=== PATIENT | female | born 1965 | race Caucasian/White ===

== ENCOUNTER 2016-08-16 18:32 | Emergency (ER) | payer OTHER ==
[2016-08-16 18:45] VITALS: BP 138/89
--- NOTE | 2016-08-16 18:48 | UC ---
Throat Pain/Nasal Freddie HPI - HPI Summary HPI Summary: Rapid onset ST yesterday L>R with radiation to L ear. Feels awful today. - History of Current Complaint Stated Complaint: POSSIBLE STREP THROAT Time Seen by Provider: 08/16/16 18:35 Hx Obtained From: Patient Hx Last Menstrual Period: 2009 ?: No Onset/Duration: Lasting Hours Severity: Moderate Cough: None Associated Signs & Symptoms: Negative: Fever, Vomiting, Rash - Allergies/Home Medications Allergies/Adverse Reactions: Allergies Allergy/AdvReac Type Severity Reaction Status Date / Time Hydrocodone Allergy Severe Vomiting Verified 08/16/16 18:45 Penicillins Allergy Severe Unknown Verified 08/16/16 18:45 Reaction Details PMH/Surg Hx/FS Hx/Imm Hx Endocrine History Of: Reports: Thyroid Disease, Hypothyroidism Denies: Diabetes Cardiovascular History Of: Denies: Cardiac Disorders, Hypertension Respiratory History Of: Denies: COPD, Asthma GI/ History Of: Denies: Ulcer - Surgical History Surgical History: Yes Surgery Procedure, Year, and Place: Hysterectomy, cholecystectomy, BREAST LUMPECTOMY (L), BLADDER SURGERY - Family History Known Family History: Positive: Blood Disorder - thallasemia minor Family History: NON CONTRIBUTORY - Social History Occupation: Employed Full-time Lives: Alone Alcohol Use: None Substance Use Type: None Smoking Status (MU): Former Smoker Review of Systems Constitutional: Negative Skin: Negative Eyes: Negative ENT: Sore Throat Respiratory: Negative Cardiovascular: Negative Gastrointestinal: Negative Genitourinary: Negative Motor: Negative Neurovascular: Negative Musculoskeletal: Negative Neurological: Negative Psychological: Negative All Other Systems Reviewed And Are Negative: Yes Physical Exam Triage Information Reviewed: Yes Appearance: Well-Appearing, Pain Distress - with swallowing Vital Signs: Initial Vital Signs Temp 97.6 F 08/16/16 18:42 Pulse 107 08/16/16 18:42 Resp 18 08/16/16 18:42 BP 138/89 08/16/16 18:42 Pulse Ox 100 08/16/16 18:42 Vital Signs Reviewed: Yes Eye Exam: Normal Eyes: Positive: Conjunctiva Clear ENT: Positive: Pharynx normal, TMs normal. Negative: Nasal congestion, Nasal drainage, Tonsillar swelling, Tonsillar exudate - s/p tonsillectomy Dental Exam: Normal Neck: Positive: Tenderness @ - L tonsillar node, Enlarged Nodes @ - L tonsillar node Respiratory Exam: Normal Respiratory: Positive: Chest non-tender, Lungs clear, Normal breath sounds, No respiratory distress, No accessory muscle use Cardiovascular Exam: Normal Cardiovascular: Positive: RRR, No Murmur Musculoskeletal Exam: Normal Neurological Exam: Normal Neurological: Positive: Alert Psychological Exam: Normal Skin Exam: Normal Throat Pain/Nasal Course/Dx - Differential Dx/Diagnosis Provider Diagnoses: pharyngitis. elevated blood pressure due to pain Discharge - Discharge Plan Condition: Stable Disposition: HOME Patient Education Materials: Pharyngitis (ED) Referrals: No Primary Care Phys,NOPCP [Primary Care Provider] -
[2016-08-16] MEDS ORDERED: Cephalexin CAP* 500 MG PO ONE (19:23)
[2016-08-16] MEDS ORDERED: Ibuprofen PED LIQ* 100 MG/5 ML UDC PO ONE (19:23)
[2016-08-16] MEDS ORDERED: Cephalexin CAP* 250 MG PO ONE ×2 (19:31→19:42)
== END 2016-08-16 19:50 | disposition home or self-care (01) ==
LOC: UCEAST 18:32
DX: J02.9 Acute pharyngitis, unspecified (principal); R03.0 Elevated blood-pressure reading, without diagnosis of hypertension; E03.9 Hypothyroidism, unspecified; Z88.5 Allergy status to narcotic agent; Z88.0 Allergy status to penicillin; Z87.891 Personal history of nicotine dependence
CPT/HCPCS: 87651; 99213; A9270-GY; G0463

== ENCOUNTER 2016-09-18 20:21 | Emergency (ER) | payer OTHER ==
--- NOTE | 2016-09-18 21:00 | ED ---
Lower Extremity - HPI Summary HPI Summary: 51F w/ thalassemia minor presents with left lower leg swelling for two days. She states she thinks she has a torn medial meniscus on left knee. She says that her knee locks and seems to grind like. She states that she had swelling in the knee two days ago. She states she has ice it and then running up hills on the leg. She states the swelling seemed to spread to the entire left leg quickly. She denies any injury to the area. She is on estrogen. She denies any family history of blood clots. She is a nonsmoker, denies any recent travel, surgeries or personal history of CA. - History of Current Complaint Chief Complaint: EDExtremityLower Stated Complaint: LT LEG SWOLLEN Time Seen by Provider: 09/18/16 20:37 Hx Last Menstrual Period: 2009 Pain Intensity: 7 - Allergies/Home Medications Allergies/Adverse Reactions: Allergies Allergy/AdvReac Type Severity Reaction Status Date / Time Hydrocodone Allergy Severe Vomiting Verified 08/16/16 18:45 Penicillins Allergy Severe Unknown Verified 08/16/16 18:45 Reaction Details PMH/Surg Hx/FS Hx/Imm Hx Endocrine/Hematology History: Reports: Hx Thyroid Disease Denies: Hx Diabetes Cardiovascular History: Denies: Hx Hypertension Respiratory History: Denies: Hx Asthma, Hx Chronic Obstructive Pulmonary Disease (COPD) GI History: Denies: Hx Ulcer - Surgical History Surgery Procedure, Year, and Place: Hysterectomy, cholecystectomy, BREAST LUMPECTOMY (L), BLADDER SURGERY Infectious Disease History: No Infectious Disease History: Denies: Hx Clostridium Difficile, Hx Hepatitis, Hx Human Immunodeficiency Virus (HIV), Traveled Outside the [place] in Last 30 Days - Family History Known Family History: Positive: Blood Disorder - thallasemia minor Family History: NON CONTRIBUTORY - Social History Alcohol Use: None Substance Use Type: Reports: None Smoking Status (MU): Former Smoker Review of Systems Negative: Fever Negative: Chest Pain Negative: Shortness Of Breath Positive: Myalgia - left knee, Edema - left leg All Other Systems Reviewed And Are Negative: Yes Physical Exam Triage Information Reviewed: Yes Vital Signs On Initial Exam: Initial Vitals Temp Pulse Resp BP Pulse Ox 98.1 F 94 16 114/78 99 09/18/16 20:30 09/18/16 20:30 09/18/16 20:30 09/18/16 20:30 09/18/16 20:30 Vital Signs Reviewed: Yes Appearance: Positive: Well-Appearing Skin: Positive: Warm, Dry Head/Face: Positive: Normal Head/Face Inspection Eyes: Positive: Normal, Conjunctiva Clear Respiratory/Lung Sounds: Positive: Clear to Auscultation, Breath Sounds Present Cardiovascular: Positive: Normal, RRR Musculoskeletal: Positive: Strength/ROM Intact - knee with pain, Gareth Sign Left , Edema Left - leg, Other - good pulses, no rash seen, pos israel test Diagnostics - Vital Signs Vital Signs Temp Pulse Resp BP Pulse Ox 09/18/16 20:30 98.1 F 94 16 114/78 99 - Laboratory Result Diagrams: 09/18/16 21:10 09/18/16 21:10 Lab Statement: Any lab studies that have been ordered have been reviewed, and results considered in the medical decision making process. - Ultrasound No standard instances Ultrasound Interpretation: No Acute Changes - IMPRESSION: NO EVIDENCE OF DEEP VENOUS THROMBOSIS IS IDENTIFIED. Ultrasound Interpretation Completed By: Radiologist Lower Extremity Course/Dx - Course Course Of Treatment: 51F presents with left leg swelling. says has ongoing leg knee pain on medial aspect of knee with popping and locking. no trauma. says that was having pain and decided to push self by running up some hills. afterwards notice swelling from knee down leg. only risk factor for blood clot is estrogen use. legs does not appear cellulitic and normal wbc, has anemia at baseline. u/s no DVT potential popilteal cyst. pos [place] on exam so suspect meniscal injury. suspect swelling is from patient overexerting her self. told to RICE and follow up with ortho for knee. patient understands and agrees with plan - Diagnoses Differential Diagnosis/HQI/PQRI: Positive: DVT, Sprain, Strain, Other - menisical injury Provider Diagnoses: Left knee pain, Swelling of left lower extremity Discharge - Discharge Plan Condition: Good Disposition: HOME Patient Education Materials: Knee Pain (ED) Referrals: [facility] [Outside] Coleman Corral MD [Medical Doctor] - Additional Instructions: Take Tylenol or ibuprofen every 6 hours as needed for pain Apply ice, rest, elevate Place soft knee brace on area Establish care with primary care physician Follow up with ortho Return to ED if develop any new or worsening symptoms
[2016-09-18 21:15] LABS: Hematocrit 36 % (35-47); Hemoglobin 11.3 g/dl (12.0-16.0); Mean Corpuscular HGB Conc 31 g/dl (31-36); Mean Corpuscular Hemoglobin 19 pg (27-31); Mean Platelet Volume 8 um3 (7.4-10.4); Red Blood Count 5.92 10^6/ul (4.0-5.4); Red Cell Distribution Width 16 % (10.5-15); White Blood Count 10.3 10^3/ul (3.5-10.8)
[2016-09-18 21:18] LABS: Comments Flag Yes; Mean Corpuscular Volume 61 fL (80-97)
[2016-09-18 21:53] LABS: BUN/Creatinine Ratio 43.8 (8-20); Calcium 9.3 mg/dL (8.6-10.3); EGFR African American 126.8 (>60); EGFR Non-African American 98.6 (>60); Potassium 3.7 mmol/L (3.5-5.0); Total Bilirubin 0.3 mg/dL (0.2-1.0)
--- NOTE | 2016-09-18 22:27 | RAD ---
Indication: Left leg edema. Duplex Doppler sonography of the deep venous system of the left lower extremity deep venous system was performed. Bilaterally the common femoral veins appear patent and compressible. Left proximal greater saphenous vein, proximal deep femoral vein, femoral vein, popliteal vein, posterior tibial veins and peroneal veins appear patent and compressible. Complex hypoechoic mass is noted in the medial aspect of the popliteal fossa measuring 3.3 x 5.6 x 1.3 cm may represent a complex popliteal cyst. IMPRESSION: NO EVIDENCE OF DEEP VENOUS THROMBOSIS IS IDENTIFIED.
[2016-09-18 22:51] VITALS: BP 124/78
== END 2016-09-18 22:51 | disposition home or self-care (01) ==
LOC: ED 20:21
DX: M25.562 Pain in left knee (principal); R60.0 Localized edema; M79.1 Myalgia; Z87.891 Personal history of nicotine dependence
CPT/HCPCS: 36415; 80053; 85025; 85610; 85730; 99282

== ENCOUNTER 2017-02-01 18:49 | Emergency (ER) | payer OTHER ==
[2017-02-01 18:58] VITALS: BP 140/79
--- NOTE | 2017-02-01 19:14 | UC ---
Upper Extremity HPI - HPI Summary HPI Summary: 51 YEAR OLD FEMALE PRESENTS WITH RIGHT ELBOW PAIN AFTER FALLING ONE MONTH AGO WHILE RUNNING. - History of Current Complaint Chief Complaint: UCUpperExtremity Stated Complaint: ELBOW PAIN Time Seen by Provider: 02/01/17 19:10 Hx Obtained From: Patient Hx Last Menstrual Period: 2009 Onset/Duration: Sudden Onset Severity Initially: Moderate Severity Currently: Moderate Pain Scale Used: 0-10 Numeric - 5 - Allergies/Home Medications Allergies/Adverse Reactions: Allergies Allergy/AdvReac Type Severity Reaction Status Date / Time Hydrocodone Allergy Severe Vomiting Verified 02/01/17 18:58 Penicillins Allergy Severe Unknown Verified 02/01/17 18:58 Reaction Details Home Medications: Home Medications celeCOXIB CAP* [Celebrex CAP*] 1 tab PO DAILY 02/01/17 [History Confirmed ] PMH/Surg Hx/FS Hx/Imm Hx Previously Healthy: Yes - Surgical History Surgical History: Yes Surgery Procedure, Year, and Place: HYSTERECTOMY; GALLBLADDER; BREAST LUMPECTOMY (L); BLADDER SURGERY - MESH SLING;. TONSILLECTOMY; ORAL SURGERY - Family History Known Family History: Positive: Blood Disorder - thallasemia minor Family History: NON CONTRIBUTORY - Social History Alcohol Use: None Substance Use Type: None Smoking Status (MU): Former Smoker Review of Systems Constitutional: Negative Skin: Negative Eyes: Negative ENT: Negative Respiratory: Negative Cardiovascular: Negative Gastrointestinal: Negative Genitourinary: Negative Motor: Negative Neurovascular: Negative Musculoskeletal: Other: - RIGHT ELBOW PAIN Neurological: Negative Psychological: Negative All Other Systems Reviewed And Are Negative: Yes Physical Exam Triage Information Reviewed: Yes Appearance: Well-Appearing Vital Signs: Initial Vital Signs Temp 37.1 C 02/01/17 18:54 Pulse 99 02/01/17 18:54 Resp 12 02/01/17 18:54 BP 140/79 02/01/17 18:54 Pulse Ox 100 02/01/17 18:54 Vital Signs Reviewed: Yes Eye Exam: Normal ENT Exam: Normal Dental Exam: Normal Neck exam: Normal Neck: Positive: 1 Respiratory Exam: Normal Cardiovascular Exam: Normal Abdominal Exam: Normal Musculoskeletal: Positive: Other: - RIGHT ELBOW PAIN Neurological Exam: Normal Psychological Exam: Normal Skin Exam: Normal Upper Extremity Course/Dx - Differential Dx/Diagnosis Provider Diagnoses: RIGHT TENNIS ELBOW Discharge - Discharge Plan Condition: Stable Disposition: HOME Patient Education Materials: Elbow Sprain (ED), Tennis Elbow (ED) Referrals: Rodney Fortune PA [Primary Care Provider] - Coleman Corral MD [Medical Doctor] -
--- NOTE | 2017-02-01 19:56 | RAD ---
HISTORY: Remote trauma, pain, right elbow COMPARISONS: None VIEWS: 4, Frontal, lateral, and oblique views of the right elbow FINDINGS: BONE DENSITY: Normal. BONES: There is no displaced fracture. JOINTS: There is no arthropathy. There is no posterior supracondylar fat pad to suggest a joint effusion. ALIGNMENT: There is no dislocation. SOFT TISSUES: Unremarkable. OTHER FINDINGS: None. IMPRESSION: NO ACUTE OSSEOUS INJURY. IF SYMPTOMS PERSIST, RECOMMEND REPEAT IMAGING.
== END 2017-02-01 20:25 | disposition home or self-care (01) ==
LOC: UCEAST 18:49
DX: M77.11 Lateral epicondylitis, right elbow (principal); Z88.5 Allergy status to narcotic agent; Z88.0 Allergy status to penicillin; Z79.1 Long term (current) use of non-steroidal anti-inflammatories (NSAID); Z87.891 Personal history of nicotine dependence
CPT/HCPCS: 99213; G0463

== ENCOUNTER 2017-03-15 19:26 | Emergency (ER) | payer OTHER ==
--- NOTE | 2017-03-15 20:48 | RAD ---
INDICATION: Left femoral infection. Evaluate for soft tissue gas. COMPARISON: None TECHNIQUE: AP and lateral views were obtained. FINDINGS: The bony structures, joint spaces, and soft tissues are normal for age. IMPRESSION: NO ACUTE BONY FINDINGS. NORMAL SOFT TISSUES.
--- NOTE | 2017-03-15 20:55 | RAD ---
INDICATION: Pain and swelling. Cellulitis COMPARISON: September 18, 2016 TECHNIQUE: Duplex interrogation of the Lowerextremity was performed. FINDINGS: Deep veins: The common femoral, great saphenous, profunda femoris, proximal, mid, and distal deep femoral, popliteal, posterior tibial, and peroneal veins are patent. There is normal compressibility, augmentation, and phasic flow. Superficial veins: There are no findings of superficial thrombophlebitis. Popliteal fossa:There is no evidence of a popliteal cyst. Soft tissues:There are no soft tissue abnormalities. IMPRESSION: Normal examination. No evidence of deep venous thrombosis
[2017-03-15 21:21] LABS: Hematocrit 36 % (35-47); Hemoglobin 11.6 g/dl (12.0-16.0); Mean Corpuscular HGB Conc 32 g/dl (31-36); Mean Corpuscular Hemoglobin 20 pg (27-31); Mean Platelet Volume 8 um3 (7.4-10.4); Red Blood Count 5.87 10^6/ul (4.0-5.4); Red Cell Distribution Width 16 % (10.5-15); White Blood Count 9.1 10^3/ul (3.5-10.8)
[2017-03-15 21:22] LABS: Comments Flag Yes; Mean Corpuscular Volume 62 fL (80-97)
[2017-03-15 21:34] LABS: BUN/Creatinine Ratio 24.1 (8-20); Calcium 9.4 mg/dL (8.6-10.3); EGFR African American 99.1 (>60); Globulin 3.1 g/dL (2-4); Potassium 3.6 mmol/L (3.5-5.0); Total Bilirubin 0.4 mg/dL (0.2-1.0); Total Protein 7.1 g/dL (6.4-8.9)
[2017-03-15 22:17] VITALS: BP 136/91
--- NOTE | 2017-03-16 03:43 | ED ---
Princess Rondon Edward, scribed for Greer Lisa MD on 03/15/17 at 1944 . Lower Extremity - HPI Summary HPI Summary: 52 y/o female presents to the ED c/o rash at her L upper thigh starting a couple of weeks ago that is worsening. Pt states the site was red and developed into bruising around three days ago. Pt also c/o 2 hard spots at her upper thigh. The rash is painful described as a stinging pain. Associated sx: pain @ top of L foot. Pt was given Bactrim. PMHx IBS, anemia. Non-smoker, no EtOH use. Pt is working in town but is originally from [place]. - History of Current Complaint Chief Complaint: EDExtremityLower Stated Complaint: POSSIBLE INFECTION ON LT LEG Hx Obtained From: Patient Hx Last Menstrual Period: 2009 Onset/Duration: Still Present Pain Intensity: 7 Timing: Constant, Lasting Days Location: Is Discrete @ - L upper thigh Character Of Pain: Sharp - stinging Associated Signs And Symptoms: Positive: Redness, Bruising, Other - Top of L foot pain - Allergies/Home Medications Allergies/Adverse Reactions: Allergies Allergy/AdvReac Type Severity Reaction Status Date / Time Hydrocodone Allergy Severe Vomiting Verified 03/15/17 19:40 Penicillins Allergy Severe Unknown Verified 03/15/17 19:40 Reaction Details PMH/Surg Hx/FS Hx/Imm Hx Previously Healthy: No Endocrine/Hematology History: Denies: Hx Diabetes, Hx Thyroid Disease Cardiovascular History: Denies: Hx Hypertension, Hx Pacemaker/ICD Respiratory History: Denies: Hx Asthma, Hx Chronic Obstructive Pulmonary Disease (COPD) GI History: Denies: Hx Ulcer History: Denies: Hx Renal Disease Sensory History: Denies: Hx Hearing Aid Psychiatric History: Denies: Hx Panic Disorder - Surgical History Surgery Procedure, Year, and Place: HYSTERECTOMY; GALLBLADDER; BREAST LUMPECTOMY (L); BLADDER SURGERY - MESH SLING;. TONSILLECTOMY; ORAL SURGERY Infectious Disease History: No Infectious Disease History: Denies: Hx Clostridium Difficile, Hx Hepatitis, Hx Human Immunodeficiency Virus (HIV), Traveled Outside the US in Last 30 Days - Family History Known Family History: Positive: Blood Disorder - thallasemia minor - Social History Alcohol Use: None Hx Substance Use: No Substance Use Type: Reports: None Hx Tobacco Use: Yes Smoking Status (MU): Former Smoker Review of Systems Constitutional: Negative Eyes: Negative ENT: Negative Cardiovascular: Negative Respiratory: Negative Gastrointestinal: Negative Genitourinary: Negative Positive: Arthralgia - 2 hard nodules @ L upper thigh, Other - 2 hard spots @ upper thigh Positive: Rash Neurological: Negative Psychological: Normal All Other Systems Reviewed And Are Negative: No Physical Exam - Summary Physical Exam Summary: Appearance: Alert, conversive, nontoxic appearing Skin: Warm, dry, no mottling, no rashes, no contusions HEENT: EOMI, PERRL, moist mucous membranes Neck: No masses on the neck, supple Respiratory: Clear to auscultation, breath sounds present, no rales, no rhonchi , no wheezes Cardiovascular: RRR, pulses are symmetrical in both lower and upper extremities Abdomen: Soft, non-tender Bowel Sounds: Present Musculoskeletal: No CVA tenderness, no obvious deformity, moving all extremities in a grossly normal manner. There is no inguinal lymphadenopathy on the L. At the L thigh there is discoloration and 2 hard nodules. No pores, no drainage. Neurological: A&Ox3, CN II-XII Intact, moving all extremities symmetrically Psychiatric: The pt is anxious. Triage Information Reviewed: Yes Vital Signs On Initial Exam: Initial Vitals Temp Pulse Resp BP Pulse Ox 97.6 F 99 16 140/84 100 03/15/17 19:35 03/15/17 19:35 03/15/17 19:35 03/15/17 19:35 03/15/17 19:35 Vital Signs Reviewed: Yes Diagnostics - Vital Signs Vital Signs Temp Pulse Resp BP Pulse Ox 03/15/17 19:35 97.6 F 99 16 140/84 100 - Laboratory Lab Results: Lab Results 03/15/17 03/15/17 Range/Units 21:04 21:04 WBC 9.1 (3.5-10.8) 10^3/ul RBC 5.87 H (4.0-5.4) 10^6/ul Hgb 11.6 L (12.0-16.0) g/dl Hct 36 (35-47) % MCV 62 L (80-97) fL MCH 20 L (27-31) pg MCHC 32 (31-36) g/dl RDW 16 H (10.5-15) % Plt Count 286 (150-450) 10^3/ul MPV 8 (7.4-10.4) um3 Neut % (Auto) 53.1 (38-83) % Lymph % (Auto) 35.8 (25-47) % [place] % (Auto) 8.8 (1-9) % Eos % (Auto) 1.2 (0-6) % Baso % (Auto) 1.1 (0-2) % Absolute Neuts (auto) 4.8 (1.5-7.7) 10^3/ul Absolute Lymphs (auto) 3.3 (1.0-4.8) 10^3/ul Absolute Monos (auto) 0.8 (0-0.8) 10^3/ul Absolute Eos (auto) 0.1 (0-0.6) 10^3/ul Absolute Basos (auto) 0.1 (0-0.2) 10^3/ul Absolute Nucleated RBC 0.01 10^3/ul Nucleated RBC % 0.1 Sodium 136 (133-145) mmol/L Potassium 3.6 (3.5-5.0) mmol/L Chloride 100 L (101-111) mmol/L Carbon Dioxide 28 (22-32) mmol/L Anion Gap 8 (2-11) mmol/L BUN 19 (6-24) mg/dL Creatinine 0.79 (0.51-0.95) mg/dL Est GFR ( Amer) 99.1 (>60) Est GFR (Non-Af Amer) 77.0 (>60) BUN/Creatinine Ratio 24.1 H (8-20) Glucose 110 H (70-100) mg/dL Calcium 9.4 (8.6-10.3) mg/dL Total Bilirubin 0.40 (0.2-1.0) mg/dL AST 16 (13-39) U/L ALT 22 (7-52) U/L Alkaline Phosphatase 60 (34-104) U/L Total Protein 7.1 (6.4-8.9) g/dL Albumin 4.0 (3.2-5.2) g/dL Globulin 3.1 (2-4) g/dL Albumin/Globulin Ratio 1.3 (1-3) Result Diagrams: 03/15/17 21:04 03/15/17 21:04 Lab Statement: Any lab studies that have been ordered have been reviewed, and results considered in the medical decision making process. - Radiology FEMUR XR Xray Interpretation: No Acute Changes - NO ACUTE BONY FINDINGS. NORMAL SOFT TISSUES. Radiology Interpretation Completed By: Radiologist - ED PHYSICIAN REVIEWS AND AGREES - Ultrasound No standard instances Ultrasound Interpretation: No Acute Changes - [place] Doppler study - Normal examination. No evidence of deep venous thrombosis Ultrasound Interpretation Completed By: Radiologist - ED PHYSICIAN REVIEWS AND AGREES Re-Evaluation - Re-Evaluation 1 Re-Evaluation Time: 21:55 Comment: Discussed test results and plan to d/c Lower Extremity Course/Dx - Course Assessment/Plan: 52 y/o female presents to the ED c/o rash at her L upper thigh starting a couple of weeks ago that is worsening. Pt states the site was red and developed into bruising around three days ago. Pt also c/o hard spots at her upper thigh. The rash is painful described as a stinging pain. Associated sx : pain @ top of L foot. Pt was given Bactrim. PMHx IBS, anemia. Non-smoker, no EtOH use. FEMUR XR SHOWS NO ACUTE BONY FINDINGS. NORMAL SOFT TISSUES. May Doppler study - Normal examination. No evidence of deep venous thrombosis. Test results without significant abnormalities. Pt will be d/c home. - Diagnoses Provider Diagnoses: Leg pain Discharge - Discharge Plan Condition: Stable Disposition: HOME Patient Education Materials: Leg Pain (ED) Forms: *Work Release Referrals: Casper Alejandro MD [Primary Care Provider] - 3 Days Additional Instructions: Please follow up with your doctor in 2-3 days. take tylenol and motrin for pain. If you develop any swelling to your left thigh, changes, or increase pain , return for re-evaluation. The documentation as recorded by the Princess hernandez Edward accurately reflects the service I personally performed and the decisions made by , Greer Lisa MD.
== END 2017-03-15 22:10 | disposition home or self-care (01) ==
LOC: ED 19:26
DX: M79.605 Pain in left leg (principal); Z87.891 Personal history of nicotine dependence
CPT/HCPCS: 36415; 80053; 85025; 87040; 99282

== ENCOUNTER 2017-03-25 22:14 | Emergency (ER) | payer OTHER ==
[2017-03-25] MEDS ORDERED: Ketorolac INJ* 30 MG/ML 1 ML VIAL IV PUSH ONE (23:11)
[2017-03-25 23:38] LABS: Comments Flag Yes; Hematocrit 35 % (35-47); Hemoglobin 11.2 g/dl (12.0-16.0); Mean Corpuscular HGB Conc 32 g/dl (31-36); Mean Corpuscular Hemoglobin 20 pg (27-31); Mean Platelet Volume 8 um3 (7.4-10.4); Red Cell Distribution Width 16 % (10.5-15); White Blood Count 9.1 10^3/ul (3.5-10.8)
[2017-03-25 23:39] LABS: Mean Corpuscular Volume 62 fL (80-97)
[2017-03-25 23:53] LABS: BUN/Creatinine Ratio 34.9 (8-20); Calcium 9.4 mg/dL (8.6-10.3); EGFR African American 128.6 (>60); Globulin 2.8 g/dL (2-4); Potassium 3.7 mmol/L (3.5-5.0); Total Bilirubin 0.4 mg/dL (0.2-1.0); Total Protein 6.8 g/dL (6.4-8.9)
--- NOTE | 2017-03-26 01:00 | ED ---
Arminda Rondon Nilda, scribed for Chuy Elizabeth MD on 03/25/17 at 2249 . Skin Complaint - HPI Summary HPI Summary: This patient is a 52 year old F presenting to [facility] with a chief complaint of constant left inner thigh rash (painful with hard nodules) for the past few weeks. The patient rates the pain 7/10 in severity. Symptoms aggravated by palpation. Symptoms alleviated by nothing including antibiotics (Bactrim for 2 weeks and Doxycycline for 10 days) and warm compresses (2-3x per day, 15 mins each time). Patient also reports left foot pain (began 2 weeks ago) and left knee bruising. Patient denies fever and trauma to knee. On 03/15/17 patient received Venous Doppler at [facility] due to calf swelling and was diagnosed with thrombophlebitis. - History of Current Complaint Chief Complaint: EDExtremityLower Time Seen by Provider: 03/25/17 22:34 Stated Complaint: LT LEG RED AND TENDER Hx Obtained From: Patient Hx Last Menstrual Period: 2009 Onset/Duration: Started Weeks Ago, Still Present Timing: Constant Current Severity: Severe Pain Intensity: 7 Pain Scale Used: 0-10 Numeric Skin Location: Leg - left inner thigh rash Character: Pain, Redness, Raised Aggravating Symptom(s): Touch Alleviating Symptom(s): Nothing Associated Signs & Symptoms: Rash - Allergy/Home Medications Allergies/Adverse Reactions: Allergies Allergy/AdvReac Type Severity Reaction Status Date / Time Hydrocodone Allergy Severe Vomiting Verified 03/15/17 19:40 Penicillins Allergy Severe Unknown Verified 03/15/17 19:40 Reaction Details PMH/Surg Hx/FS Hx/Imm Hx Endocrine/Hematology History: Denies: Hx Diabetes, Hx Thyroid Disease Cardiovascular History: Denies: Hx Hypertension, Hx Pacemaker/ICD Respiratory History: Denies: Hx Asthma, Hx Chronic Obstructive Pulmonary Disease (COPD) GI History: Denies: Hx Ulcer History: Denies: Hx Renal Disease Sensory History: Denies: Hx Hearing Aid Psychiatric History: Denies: Hx Panic Disorder - Surgical History Surgery Procedure, Year, and Place: HYSTERECTOMY; GALLBLADDER; BREAST LUMPECTOMY (L); BLADDER SURGERY - MESH SLING;. TONSILLECTOMY; ORAL SURGERY Infectious Disease History: No Infectious Disease History: Denies: Hx Clostridium Difficile, Hx Hepatitis, Hx Human Immunodeficiency Virus (HIV), Traveled Outside the [place] in Last 30 Days - Family History Known Family History: Positive: Blood Disorder - thallasemia minor Family History: NON CONTRIBUTORY - Social History Alcohol Use: None Hx Substance Use: No Substance Use Type: Reports: None Hx Tobacco Use: Yes Smoking Status (MU): Former Smoker Review of Systems Negative: Fever Positive: Other - left foot pain, left knee bruising Positive: Rash - left inner thigh (painful with "hard spots") All Other Systems Reviewed And Are Negative: Yes Physical Exam - Summary Physical Exam Summary: GENERAL: Patient is a well-developed and nourished (MALE OR FEMALE) who is lying comfortable in the stretcher. Patient is not in any acute respiratory distress. HEAD AND FACE: No signs of trauma. No ecchymosis, hematomas or skull depressions. No sinus tenderness. EYES: PERRLA, EOMI x 2, No injected conjunctiva, no nystagmus. EARS: Hearing grossly intact. Ear canals and tympanic membranes are within normal limits. MOUTH: Oropharynx within normal limits. NECK: Supple, trachea is midline, no adenopathy, no JVD, no carotid bruit, no c- spine tenderness, neck with full ROM. CHEST: Symmetric, no tenderness at palpation LUNGS: Clear to auscultation bilaterally. No wheezing or crackles. CVS: Regular rate and rhythm, S1 and S2 present, no murmurs or gallops appreciated. ABDOMEN: Soft, non-tender. No signs of distention. No rebound no guarding, and no masses palpated. Bowel sounds are normal. EXTREMITIES: FROM in all major joints, no edema, no cyanosis or clubbing NEURO: Alert and oriented x 3. No acute neurological deficits. Speech is normal and follows commands. SKIN: Dry and warm; [id number] area redness and mild tenderness on left inner thigh with chord like structure felt underneath which could be consistent with phlebetitis. Triage Information Reviewed: Yes Vital Signs On Initial Exam: Initial Vitals Temp Pulse Resp BP Pulse Ox 97.4 F 96 18 132/79 100 03/25/17 22:17 03/25/17 22:17 03/25/17 22:17 03/25/17 22:17 03/25/17 22:17 Vital Signs Reviewed: Yes Diagnostics - Vital Signs Vital Signs Temp Pulse Resp BP Pulse Ox 03/25/17 22:17 97.4 F 96 18 132/79 100 - Laboratory Result Diagrams: 03/25/17 23:30 03/25/17 23:30 Lab Statement: Any lab studies that have been ordered have been reviewed, and results considered in the medical decision making process. - Additional Comments Diagnostic Additional Comments: US Venous Doppler reveals, per radiologist: negative for left lower extremity DVT. Greater saphenous vein was also imaged and down to the level of the knee. This was also negative for thrombus. ED physician has reviewed this report and agrees. Course/Dx - Course Assessment/Plan: This patient is a 52 year old F presenting to [facility] with a chief complaint of constant left inner thigh rash (painful with hard nodules) for the past few weeks. The patient rates the pain 7/10 in severity. Symptoms aggravated by palpation. Symptoms alleviated by nothing including antibiotics ( Bactrim for 2 weeks and Doxycycline for 10 days) and warm compresses (2-3x per day, 15 mins each time). Patient also reports left foot pain (began 2 weeks ago ) and left knee bruising. Patient denies fever and trauma to knee. On 03/15/17 patient received Venous Doppler at [facility] due to calf swelling and was diagnosed with thrombophlebitis. Pending Venous Doppler. Venous Doppler reveals, per radiologist: negative for left lower extremity DVT. Greater saphenous vein was also imaged and down to the level of the knee. This was also negative for thrombus. ED physician has reviewed this report and agrees. Pt is stable and will be D/C with a Dx of phlebitis and PCP follow up tomorrow. Pt advised to seek vascular surgereon consultation. Pt understands and is agreeable with this plan. - Diagnoses Provider Diagnoses: Phlebitis Discharge - Discharge Plan Condition: Stable Disposition: HOME Prescriptions: Ibuprofen TAB* [Motrin TAB* 800 MG] 800 mg PO Q6H #30 tab Patient Education Materials: Superficial Thrombophlebitis (ED) Referrals: Casper Alejandro MD [Primary Care Provider] - 1 Day Additional Instructions: Take Motrin as directed and warm compresses 4 times per day. We recommend seeking consult with vascular surgeon. RETURN TO THE EMERGENCY DEPARTMENT FOR CHANGING OR WORSENING SYMPTOMS. The documentation as recorded by the Arminda hernandez Nilda accurately reflects the service I personally performed and the decisions made by , Chuy Elizabeth MD.
[2017-03-26 01:34] VITALS: BP 128/76
--- NOTE | 2017-03-26 07:52 | RAD ---
HISTORY: A marrow edema of the left eye TECHNIQUE: Multiple transverse and longitudinal ultrasound images were obtained of the veins of the right lower extremity using grayscale, color Doppler, and spectral Doppler imaging with and without compression and with augmentation. FINDINGS: VEINS: The common femoral vein, deep femoral vein, femoral vein and popliteal vein are compressible throughout their course, with normal flow on color Doppler imaging and normal response to augmentation on spectral Doppler imaging. SOFT TISSUES: Grossly normal. No large popliteal fossa cyst was identified. IMPRESSION: No sonographic evidence of deep vein thrombosis.
== END 2017-03-26 01:32 | disposition home or self-care (01) ==
LOC: ED 22:14
DX: I80.9 Phlebitis and thrombophlebitis of unspecified site (principal); R21 Rash and other nonspecific skin eruption; Z87.891 Personal history of nicotine dependence
CPT/HCPCS: 36415; 80053; 85025; 85610; 85730; 96374; 99283